=== PATIENT | female | born 1960 | race Two or more races ===

== ENCOUNTER 2018-12-30 08:45 | Inpatient (IN) | payer OTHER ==
[~2018-12-30] VITALS: Ht 167.6 cm; Wt 79.8 kg
[2018-12-30] MEDS ORDERED: LAMICTAL100 MG PO (10:24)
[2018-12-30] MEDS ORDERED: SEROQUEL300 MG PO (10:24)
[2018-12-30] MEDS ORDERED: LEXAPRO20 MG PO (10:25)
[2018-12-30] MEDS ORDERED: NEURONTIN800 MG PO (11:30)
[2019-01-13] MEDS ORDERED: XARELTO10 MG PO (08:12)
[2019-01-13] MEDS ORDERED: INTEGRA PLUS C1 EACH PO (08:12)
[2019-01-13] MEDS ORDERED: OXYC1TAB9 PO (08:12)
== END 2019-01-13 13:40 | DRG 470 ==
LOC: O/R 08:45 → SURH 01-10 08:45 → O/R 01-10 09:50 → SURH 01-10 09:50
PROVIDERS: ADMIT Orthopaedic Surgery Sports Medicine
PROC: 0SRD0J9 Replacement of Left Knee Joint with Synthetic Substitute, Cemented, Open Approach (ICD-10-PCS; principal; 2019-01-10 13:45)
DX: M17.12 Unilateral primary osteoarthritis, left knee (principal); M79.7 Fibromyalgia; F32.89 Other specified depressive episodes

== ENCOUNTER 2020-01-03 15:25 | Inpatient (IN) | payer OTHER ==
[~2020-01-03] VITALS: Ht 167.6 cm; Wt 80.3 kg
[~2020-01-03 15:25] MED LIST: AMBIEN10 MG PO; CLONAZEPAM2 MG PO; INTEGRA PLUS C1 EACH PO; LAMICTAL100 MG PO; LEXAPRO20 MG PO; NEURONTIN800 MG PO; OXYC1TAB9 PO; PAXIL40 MG PO; SEROQUEL300 MG PO; XARELTO10 MG PO
[2020-01-11] MEDS ORDERED: XARELTO10 MG PO (06:12)
[2020-01-11] MEDS ORDERED: OXYC1TAB9 PO (06:12)
[2020-01-11] MEDS ORDERED: INTEGRA PLUS C1 EACH PO (06:12)
[2020-01-11] MEDS ORDERED: BACTRIM DS TAB1 EACH PO (06:12)
== END 2020-01-11 12:11 | DRG 470 ==
LOC: O/R 01-09 05:40 → SURH 01-09 05:40
PROVIDERS: ADMIT Orthopaedic Surgery Sports Medicine; ATTEND Orthopaedic Surgery Sports Medicine
PROC: 0SRC0J9 Replacement of Right Knee Joint with Synthetic Substitute, Cemented, Open Approach (ICD-10-PCS; principal; 2020-01-09 07:00)
DX: M17.11 Unilateral primary osteoarthritis, right knee (principal)